=== PATIENT | male | born 1975 | race African-American/Black ===

== ENCOUNTER 2016-11-09 20:55 | Emergency (ER) | payer BC ==
[~2016-11-09] VITALS: Ht 180.3 cm; Wt 81.6 kg
[2016-11-09 21:00] VITALS: BP 115/73
[2016-11-09] MEDS ORDERED: PRED20TA PO (21:27)
--- NOTE | 2016-11-09 21:28 | PHYS DOC ---
Past Medical History Past Medical History: No Pertinent History Past Surgical History: No Surgical History Alcohol Use: None Drug Use: None Adult General Chief Complaint Chief Complaint: INSECT BITE [facility] HPI Patient is a 41 year old female presents emergency department stating that he was bit by something on his left foot when he was mowing the yard tonight. Patient states the area messer throbs. Head is slightly swollen and red no drainage or discharge noted from the site. Peripheral pulses 2+ cap refill brisk less than 2 seconds. Patient has not taken anything for pain and discomfort. He states that this happened probably about an hour to an hour and a half ago. He states that he believes his immunizations are up-to-date as he used to work at [employer] [facility] [employer] [place] and is only been gone there for 7 years. Review of Systems Review of Systems Constitutional: Denies fever or chills [] Eyes: Denies change in visual acuity, redness, or eye pain [] HENT: Denies nasal congestion or sore throat [] Respiratory: Denies cough or shortness of breath [] Cardiovascular: No additional information not addressed in HPI [] GI: Denies abdominal pain, nausea, vomiting, bloody stools or diarrhea [] : Denies dysuria or hematuria [] Musculoskeletal: Denies back pain or joint pain [] Integument: Denies rash or skin lesions. Complaint of insect bite to the left foot Neurologic: Denies headache, focal weakness or sensory changes [] Endocrine: Denies polyuria or polydipsia [] Physical Exam Physical Exam Constitutional: Well developed, well nourished, no acute distress, non-toxic appearance. [] HENT: Normocephalic, atraumatic, bilateral external ears normal, oropharynx moist, no oral exudates, nose normal. [] Eyes: PERRLA, EOMI, conjunctiva normal, no discharge. [] Neck: Normal range of motion, no tenderness, supple, no stridor. [] Cardiovascular:Heart rate regular rhythm Lungs & Thorax: No respiratory distress noted Skin: Warm, dry, no erythema, no rash. Patient with a red area noted on the inner part of his left foot. It appears to be slightly swollen. No drainage or discharge noted from the site. Peripheral pulses 2+ cap refill brisk less than 2 seconds. Patient was noted to have tenderness at the first metatarsal area and into the ankle area upon palpation. Back: No tenderness Extremities: No tenderness, no cyanosis, no clubbing, ROM intact, no edema. [] Neurologic: Alert and oriented X 3, normal motor function, normal sensory function, no focal deficits noted. [] Psychologic: Affect normal, judgement normal, mood normal. [] Current Patient Data Vital Signs Vital Signs Date Time Temp Pulse Resp B/P (MAP) Pulse Ox O2 Delivery O2 Flow Rate FiO2 11/09/16 21:00 98.0 76 18 97 Room Air 98.0 EKG EKG [] Radiology/Procedures Radiology/Procedures [] Course & Med Decision Making Course & Med Decision Making Pertinent Labs and Imaging studies reviewed. (See chart for details) Spoke with patient regards to this being a mosquito bite. Patient states this is not a mosquito bite. Explained to patient then without seeing the insect that bit him that it is unknown as to whether what has bitten him. Recommended Benadryl 25 mg every 6 hours, he'll be provided with a prescription for prednisone. He was also instructed to use cool packs on the area. Ice packs elevation. His also recommended to use Tylenol or ibuprofen. Patient states that they've used [id number] medications to take care of this. I explained the prednisone is not a feli-yen-facbhvn medication that this is a prescription. Patient continues to state that he believes his immunizations are up-to-date he does not need a tetanus immunization. Patient will be discharged home in stable condition signs and symptoms to return back to emergency department provided. [] Dragon Disclaimer Dragon Disclaimer This electronic medical record was generated, in whole or in part, using a voice recognition dictation system. Departure Departure Impression: Primary Impression: Insect bite Disposition: 01 HOME, SELF-CARE Condition: STABLE Referrals: NO PCP (PCP) Patient Instructions: Insect Bite, [id number] Additional Instructions: It appears that you have been bitten by some type of an insect anterior left foot area. You may take Benadryl 25 mg every 6 hours to help with the itching and irritation. This medication will cause drowsiness do not take any be alert and oriented. Prednisone as a steroid medication this will help with inflammation as well as some pain. Take this as directed. Ice packs on 20 minutes off 20 minutes several times a day. Wash area with soap and water. He may apply antibiotic ointment as needed. Watch for signs and symptoms of infection: Redness, warmth, tenderness or any yellow/greenish drainage of a come from the site. If this should occur you may do follow-up to primary care physician immediately. Follow-up the primary care physician next 3-5 days. Return back to emergency prior signs symptoms of become worse. Scripts Prednisone (PREDNISONE) 20 Mg Tablet 40 MG PO DAILY for 7 Days, #14 TAB Prov: ELENA LOVELACE APRN 11/09/16 ELENA LOVELACE APRN Nov 09, 2016 21:28
[2016-11-10] MEDS ORDERED: CEPH-264 PO (20:02)
== END 2016-11-09 21:35 | disposition home or self-care (01) ==
LOC: ER 20:55
DX: S90.862A Insect bite (nonvenomous), left foot, initial encounter (principal); W57.XXXA Bitten or stung by nonvenomous insect and other nonvenomous arthropods, initial encounter; Y93.89 Activity, other specified; Y92.89 Other specified places as the place of occurrence of the external cause; Y99.8 Other external cause status
CPT/HCPCS: 99283

== ENCOUNTER 2016-11-10 19:06 | Emergency (ER) | payer BC ==
[~2016-11-10 19:06] MED LIST: PRED20TA PO
[2016-11-10 19:35] VITALS: BP 138/87
[2016-11-10] MEDS ORDERED: CEPH-264 PO (20:02)
--- NOTE | 2016-11-10 20:02 | PHYS DOC ---
Past Medical History Past Medical History: No Pertinent History Past Surgical History: No Surgical History Alcohol Use: None Drug Use: None Adult General Chief Complaint Chief Complaint: INSECT BITE [facility] HPI Patient is a 41 year old female presents back to the emergency department for the second day in a row. He was seen here last night for a bite to his left lower foot. Patient was provided with prednisone was recommended to take Benadryl. Patient states that the area has become increasingly swollen. Patient states that he has been putting ice packs on the area and elevation as much as possible today. He states he has taken 2 doses of prednisone. Patient also denies fever, chills or any nausea or vomiting. Patient complains of swelling into the foot and above the ankle area. The insect bite itself appears to be slightly red. There does not appear to be any streaking noted. Review of Systems Review of Systems Constitutional: Denies fever or chills [] Eyes: Denies change in visual acuity, redness, or eye pain [] HENT: Denies nasal congestion or sore throat [] Respiratory: Denies cough or shortness of breath [] Cardiovascular: No additional information not addressed in HPI [] GI: Denies abdominal pain, nausea, vomiting, bloody stools or diarrhea [] : Denies dysuria or hematuria [] Musculoskeletal: Denies back pain or joint pain [] Integument: Denies rash or skin lesions. Complaint of bug bite to the left lower leg with swelling. Neurologic: Denies headache, focal weakness or sensory changes [] Endocrine: Denies polyuria or polydipsia [] Physical Exam Physical Exam Constitutional: Well developed, well nourished, no acute distress, non-toxic appearance. [] HENT: Normocephalic, atraumatic, bilateral external ears normal, oropharynx moist, no oral exudates, nose normal. [] Eyes: PERRLA, EOMI, conjunctiva normal, no discharge. [] Neck: Normal range of motion, no tenderness Cardiovascular:Heart rate regular rhythm Lungs & Thorax: No respiratory distress noted Skin: Warm, dry, no erythema, no rash. Patient with a bug bite noted to the medial side of the ankle. The area appears to be slightly red around the bite. There does appear to be slight swelling into the foot and slightly above the ankle. Peripheral pulses are 2+ cap refill brisk less than 2 seconds. No streaking no drainage or discharge noted from the site. Back: No tenderness Extremities: No tenderness, no cyanosis, no clubbing, ROM intact, no edema. [] Neurologic: Alert and oriented X 3, normal motor function, normal sensory function, no focal deficits noted. [] Psychologic: Affect normal, judgement normal, mood normal. [] Current Patient Data Vital Signs Vital Signs Date Time Temp Pulse Resp B/P (MAP) Pulse Ox O2 Delivery O2 Flow Rate FiO2 11/10/16 19:35 98.4 84 18 138/87 (104) 97 Room Air 98.4 EKG EKG [] Radiology/Procedures Radiology/Procedures [] Course & Med Decision Making Course & Med Decision Making Pertinent Labs and Imaging studies reviewed. (See chart for details) Spoke with patient in regards to using prednisone and Benadryl and ice packs and elevation. Staying off the foot may also help with the inflammation. Patient states that he feels that he has an ear infection. He states that he would not come back here because his is insistent. Patient continues to state that he normally goes to [facility] he only came here today because it was closer. Spoke with patient in regards to medications as prescribed. Spoke with him about providing him with an antibiotic as he feels that this is infected however I do not feel that the area is infected at this time. Patient will be placed on Keflex with 1 tablet twice a day for the next 10 days. Recommended ice packs elevation Benadryl and prednisone as prescribed yesterday. Patient agrees with discharge instructions. Patient states he does not have a primary care physician. He'll be provided with a doctor's list. Recommended following up to primary care physician in the next 3-5 days. [] Dragon Disclaimer Dragon Disclaimer This electronic medical record was generated, in whole or in part, using a voice recognition dictation system. Departure Departure Impression: Primary Impression: Insect bite Disposition: 01 HOME, SELF-CARE Condition: STABLE Referrals: NO PCP (PCP) Patient Instructions: Insect Bite, [id number] Additional Instructions: Continue to take her prednisone as prescribed. Benadryl 25 mg every 6 hours. This medication will cause drowsiness do not take any be alert and oriented. You may also take Pepcid 1 tablet [id number] every day for the next 7 days as well as some help with any type of allergic reaction if there is a potential there. Antibiotic as prescribed. Keep the area clean and dry. Clean the site with soap and water and apply antibiotic ointment over the bite area. Ice packs on 20 minutes off 20 minutes several times a day. Elevation as much as possible. Follow-up the primary care physician next 3-5 days. Return back to emergency department for signs and symptoms that become worse. Scripts Cephalexin (KEFLEX) 500 Mg Capsule 1 CAP PO BID, #20 CAP Prov: ELENA LOVELACE BORDER INSPECTOR 11/10/16 ELENA LOVELACE BORDER INSPECTOR Nov 10, 2016 20:02
== END 2016-11-10 20:20 | disposition home or self-care (01) ==
LOC: ER 19:06
DX: S90.862A Insect bite (nonvenomous), left foot, initial encounter (principal); W57.XXXA Bitten or stung by nonvenomous insect and other nonvenomous arthropods, initial encounter; Y93.89 Activity, other specified; Y99.8 Other external cause status; Y92.89 Other specified places as the place of occurrence of the external cause
CPT/HCPCS: 99283